=== PATIENT | male | born 1975 | race African-American/Black ===

== ENCOUNTER 2017-05-01 09:16 | Emergency (ER) | payer BC, OTHER ==
[2017-05-01 09:34] VITALS: BP 117/73
--- NOTE | 2017-05-01 10:45 | ED Physician Documentation ---
PD HPI ANIMAL BITE - Stated complaint Stated Complaint: DOG BITE/R ARM INJ - Chief complaint Chief Complaint: Wound - History obtained from History obtained from: Patient - History of Present Illness Location of injury(ies): RUE (forearm) Details of the event: Dog (he was holding his dog down at the vets in order to get exam and the dog bite him in the arm when it was scared. Patient cleansed the bite and was okay first day. Started getting some red yesterday and worse today.), Bite, Pet animal, Provoked Timing - onset: How many days ago (2) Timing - duration: Days (2) Timing - details: Gradual onset Worsened by: Moving, Palpating Associated symptoms: Swelling, Discolored (red). No: Weakness, Numbness Contributing factors: No: Immunocompromised Similar symptoms before: Has not had sx before Recently seen: Not recently seen Review of Systems Constitutional: denies: Fever, Chills GI: denies: Abdominal Pain, Nausea, Vomiting Neurologic: denies: Focal weakness, Numbness PD PAST MEDICAL HISTORY - Past Medical History Past Medical History: No - Past Surgical History Past Surgical History: No - Present Medications Home Medications: Ambulatory Orders Medication Instructions Recorded Confirmed Amox/Clav 875/125 [Augmentin] 1 each PO BID #14 tablet 05/01/17 - Allergies Allergies/Adverse Reactions: Allergies Allergy/AdvReac Type Severity Reaction Status Date / Time No Known Drug Allergies Allergy Verified 05/01/17 09:33 - Social History Does the pt smoke?: No Smoking Status: Never smoker Does the pt drink ETOH?: No Does the pt have substance abuse?: No - Immunizations Immunizations are current?: No - POLST Patient has POLST: No PD ED PE NORMAL - Vitals Vital signs reviewed: Yes - General General: Alert and oriented X 3, No acute distress, Well developed/nourished - Derm Derm: Normal color, Warm and dry - Extremities Extremities: Other (right forearm with redness and swelling. Bite wound with scant purulence. Bedside U/S did not show any fluid collection at one site and about 3 mm of fluid just under the skin. ) - Neuro Neuro: Alert and oriented X 3, No motor deficit, No sensory deficit Results - Vitals Vitals: Oxygen O2 Source Room air PD MEDICAL DECISION MAKING - ED course Complexity details: considered differential (bedside U/S without focal fluid colection.), d/w patient Departure - Departure Disposition: 01 Home, Self Care Clinical Impression: Animal bite with open wound, Cellulitis of forearm, right Condition: Stable Record reviewed to determine appropriate education?: Yes Instructions: ED Bite Animal General, ED Infec Skin Cellulitis Prescriptions: Amox/Clav 875/125 [Augmentin] 1 each PO BID #14 tablet Comments: Warm towels or soaks for the area to increase blood flow and improve drainage. Tylenol or ibuprofen if needed for pain. Augmentin twice daily for a week until completely resolved. Recheck if not improving over the next 1-2 days. Discharge Date/Time: 05/01/17 11:08
[2017-05-01] MEDS ORDERED: AMOX/CLAV 875 MG/125 MG TABLET PO STA (11:00)
[2017-05-01] MEDS ORDERED: TETANUS/DIPHTHERIA/PERTUSSIS 0.5 ML SYRINGE IM ONE ×2 (11:00→11:08)
[2017-05-01] MEDS ORDERED: AMOX/CLAV 875 MG/125 MG TABLET PO ONE (11:08)
== END 2017-05-01 11:08 | disposition home or self-care (01) ==
LOC: ED 09:16
DX: S51.851A Open bite of right forearm, initial encounter (principal); L03.113 Cellulitis of right upper limb; W54.0XXA Bitten by dog, initial encounter; Y92.531 Health care provider office as the place of occurrence of the external cause; Z23 Encounter for immunization
CPT/HCPCS: 90471; 90715; 99283; A9270

== ENCOUNTER 2021-07-26 11:57 | Outpatient (CLI) | payer BC | END 2021-07-26 23:59 | disposition home or self-care (01) | LOC: LAB.N 11:57 | PROVIDERS: ATTEND Physician Assistant | DX: U07.1 COVID-19 (principal) ==